=== PATIENT | female | born 1980 | race Caucasian/White ===

== ENCOUNTER 2023-10-26 04:10 | Emergency (ER) | payer OTHER ==
[~2023-10-26] VITALS: Ht 162.6 cm; Wt 72.7 kg
[2023-10-26 04:58] VITALS: BP 104/71; PULSE 78; RESP 18; O2SAT 98
[2023-10-26] MEDS ORDERED: ACET500T58 PO (05:16)
[2023-10-26] MEDS ORDERED: AMOX875T4 PO (05:16)
== END 2023-10-26 05:39 | disposition home or self-care (01) ==
LOC: ER 04:10
DX: L03.011 Cellulitis of right finger (principal); J45.909 Unspecified asthma, uncomplicated; Z90.49 Acquired absence of other specified parts of digestive tract; Z98.51 Tubal ligation status